=== PATIENT | male | born 1985 | race African-American/Black ===

== ENCOUNTER 2018-08-26 10:01 | Emergency (ER) | payer BC ==
--- NOTE | 2018-08-26 10:11 | EDM.PDOC ---
ED HPI GENERAL MEDICAL PROBLEM - General Chief Complaint: ENT Problem Stated Complaint: SORE THROAT Time Seen by Provider: 08/26/18 10:10 Source of Information: Reports: Patient History Limitations: Reports: No Limitations - History of Present Illness INITIAL COMMENTS - FREE TEXT/NARRATIVE: HISTORY AND PHYSICAL: History of present illness: Patient is a 32-year-old male who presents to the emergency room today with complaints of sore throat, ear pain and difficulty with eating due to pain. He states he has not felt well since Friday and has used multiple [id number] products to alleviate his symptoms, without much relief. Complains of insomnia as he has not been able to sleep well due to the discomfort. He denies any fever, chills, chest pain or shortness of breath. Denies any abdominal pain, nausea, vomiting, diarrhea or constipation. Review of systems: As per history of present illness and below otherwise all systems reviewed and negative. Past medical history: As per history of present illness and as reviewed below otherwise noncontributory. Surgical history: As per history of present illness and as reviewed below otherwise noncontributory. Social history: No reported history of drug or alcohol abuse. Family history: As per history of present illness and as reviewed below otherwise noncontributory. Physical exam: General: Developed and well nourished 32-year-old -[place] male. Alert and oriented. Nontoxic appearing and in no acute distress. HEENT: Atraumatic, normocephalic, pupils equal and reactive bilaterally, negative for conjunctival pallor or scleral icterus, mucous membranes moist, TM normal bilaterally, erythema to posterior oropharynx without exudate and no pillar shifting. His neck is supple with mild lymphadenopathy to submandibular glands bilaterally, nontender, trachea midline. No drooling or trismus noted. No meningeal signs Lungs: Clear to auscultation, breath sounds equal bilaterally, chest nontender. Heart: S1S2, regular rate and rhythm without overt murmur Abdomen: Soft, nondistended, nontender. Negative for masses or hepatosplenomegaly. Negative for costovertebral tenderness. Pelvis: Stable nontender. Genitourinary: Deferred. Rectal: Deferred. Skin: Intact, warm, dry. No lesions or rashes noted. Extremities: Atraumatic, moves all per self, negative for cords or calf pain. Neurovascular unremarkable. Neuro: Awake, alert, oriented. Cranial nerves II through XII unremarkable. Cerebellum unremarkable. Motor and sensory unremarkable throughout. Exam nonfocal. Notes: Positive streps screening. Medications prescribed. Supportive care measures were reviewed and discussed. Patient voices understanding and is agreeable to plan of care. Denies any further questions or concerns at this time. Diagnostics: Strep screen Therapeutics: None Prescription: Pen VK BID x 10 days Tylenol with Codiene Impression: Strep Throat Plan: 1. Take your medications as prescribed. 2. Tylenol and/or ibuprofen as needed for pain management. Warm saltwater gargle , rinse and spit 3-4 times daily. Please continue toothbrush. 3. Please follow-up with the market research intern or your primary care provider in the next 1-2 days. Return to the ED as needed and as discussed. Definitive disposition and diagnosis as appropriate pending reevaluation and review of above. Left Throat Pain Score (Numeric/FACES): 6 - Related Data Allergies Allergy/AdvReac Type Severity Reaction Status Date / Time No Known Allergies Allergy Verified 08/26/18 10:38 Home Meds: Home Meds Acetaminophen with Codeine [Acetaminop-Codeine 120-12 mg/5] 1 dose PO Q6HR PRN # 1 bottle 08/26/18 [Rx] Penicillin V Potassium [Veetids] 500 mg PO BID 10 Days #20 tab 08/26/18 [Rx] ED ROS ENT - Review of Systems Review Of Systems: ROS reveals no pertinent complaints other than HPI. ED EXAM, ENT - Physical Exam Exam: See Below (See dictation) Course - Vital Signs Last Recorded V/S: Last Vital Signs Temp 97.4 F 08/26/18 10:37 Pulse 99 08/26/18 10:37 Resp 20 08/26/18 10:37 BP 150/91 H 08/26/18 10:37 Pulse Ox 97 08/26/18 10:37 Departure - Departure Time of Disposition: 11:08 Disposition: Home, Self-Care 01 Clinical Impression: Strep throat - Discharge Information Prescriptions: Acetaminophen with Codeine [Acetaminop-Codeine 120-12 mg/5] 1 dose PO Q6HR PRN # 1 bottle PRN Reason: Pain (Moderate 4-6) Penicillin V Potassium [Veetids] 500 mg PO BID 10 Days #20 tab Instructions: Strep Throat, [id number] Referrals: PCP,None [Primary Care Provider] - Forms: ED Department Discharge Additional Instructions: The following information is given to patients seen in the emergency department who are being discharged to home. This information is to outline your options for follow-up care. We provide all patients seen in our emergency department with a follow-up referral. The need for follow-up, as well as the timing and circumstances, are variable depending upon the specifics of your emergency department visit. If you don't have a primary care physician on staff, we will provide you with a referral. We always advise you to contact your personal physician following an emergency department visit to inform them of the circumstance of the visit and for follow-up with them and/or the need for any referrals to a consulting specialist. The emergency department will also refer you to a specialist when appropriate. This referral assures that you have the opportunity for follow-up care with a specialist. All of these measure are taken in an effort to provide you with optimal care, which includes your follow-up. Under all circumstances we always encourage you to contact your private physician who remains a resource for coordinating your care. When calling for follow-up care, please make the office aware that this follow-up is from your recent emergency room visit. If for any reason you are refused follow-up, please contact the [facility] Emergency Department at and asked to speak to the emergency department charge nurse. [facility] [address] [place] [id number] 1. Take your medications as prescribed. 2. Tylenol and/or ibuprofen as needed for pain management. Warm saltwater gargle , rinse and spit 3-4 times daily. Please continue toothbrush. 3. Please follow-up with the market research intern or your primary care provider in the next 1-2 days. Return to the ED as needed and as discussed.
== END 2018-08-26 11:15 | disposition home or self-care (01) ==
LOC: MW.ED 10:01
DX: J02.0 Streptococcal pharyngitis (principal)
CPT/HCPCS: 87880-QW; 99282; 99283